=== PATIENT | female | born 1975 ===

== ENCOUNTER → 2023-07-24 16:12 | Outpatient (REF) | payer BC, SELFPAY | LOC: RAD 16:12 | PROVIDERS: ATTENDING PHYSICIAN Nurse Practitioner Adult Health; FAMILY PHYSICIAN Nurse Practitioner Adult Health | DX: R07.81 Pleurodynia (principal) | CPT/HCPCS: 71101 ==

== ENCOUNTER → 2024-09-01 12:29 | Outpatient (REF) | payer BC, SELFPAY | LOC: RAD 12:29 | PROVIDERS: ATTENDING PHYSICIAN Nurse Practitioner Adult Health | DX: M79.662 Pain in left lower leg (principal); M25.562 Pain in left knee | CPT/HCPCS: 73564; 93971 ==